=== PATIENT | female | born 1930 | race Caucasian/White ===

== ENCOUNTER 2016-06-15 09:35 | Emergency (ER) | payer MEDICARE ==
[~2016-06-15] VITALS: Ht 162.6 cm; Wt 78.5 kg
[~2016-06-15 09:35] MED LIST: AMITRIPTYLINE H10 MG PO; AMITRIPTYLINE10 MG PO; ANTI-DIARRHEAL2 MG PO; AZILECT1 MG PO; BENICAR20 MG PO; CALCIUM ACETAT667 MG PO; CALCIUM PO; CARBIDOPA/LE1 TABLE2 PO; CEFDINIR250 MG/5 M PO; CLOPIDOGREL75 M2 PO; FUROSEMIDE 40MG40 M1 PO; FUROSEMIDE40 MG PO; GLYCOLAX17 GM/DOSE PO; K-DUR 2020 MEQ PO; LOSARTAN POTASS50 MG PO; PLAVIX75 MG PO; PRAVASTATIN 20M20 MG PO; WOMEN'S DAILY1 TAB PO
[2016-06-15] MEDS ORDERED: CLINDAMYCIN HC300 MG PO (10:23)
--- NOTE | 2016-06-15 10:24 | Emergency Room Report ---
History of Present Illness Time Seen by [id number] Presenting Problem in Triage Pt arrived:Wheelchair Presenting Problem:CL WAS BROUGHT IN DUE TO A RASH ON HER RIGHT UPPER ARM. 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 N Clinical Suspician of Infection? N Mental Status: 1 - Regular (Normal Baseline) Sepsis Risk:Low Sepsis Risk Have you (or family members/close friends) recently traveled outside the [place]? N If Yes, where/when: Have you had exposure to infectious disease within the past month? N TB? Other? Specify: Patient was sent in for evaluation of LEFT upper extremity redness which was outlined in pen there is an area that is about 0.5 percent body surface area on her LEFT lateral arm that has been marked by pen in a somewhat circular area where they had marked boundaries of where the redness was the nurse reports to me that she cannot see any redness within the marked area, the patient's family state they can't currently see any redness within the marked area either. The patient denies any pain denies any problems she denies any fevers or chills. she denies any itching at the site ALLERGIES Coded Allergies: amoxicillin (Intermediate, I-RASH 03/30/15) clavulanic acid (From AUGMENTIN) (Mild, NA-DIARRHEA 03/30/15) Home Medications Reported Medications Clopidogrel Bisulfate (Plavix) 75 MG PO DAILY Furosemide (Furosemide 40MG) 40 MG PO DAILY MULTIVITS,CA,MINERALS/IRON/FA (Women's Daily Caplet) 1 TAB PO DAILY CARBIDOPA 25/LEVODOPA 100 (Carbidopa-Levodopa 25-100 Tab) 1 TABLET PO TID [CALCIUM] 1 TAB PO DAILY History Medical History General CAD? No Angina: No MT: No Hypertension? Yes Hyperlipidemia? Yes CHF? No DVT? No PE? No COPD? No Asthma? No Anemia? No GERD? No Gastric ulcers? No GI Bleed? No Hernia? No Thyroid Problems? No Hypothyroidism? No CVA? No Seizures? No Diabetes? No Insulin Dependent: No Insulin Pump: No Home FSBS? No Renal Insuffiency? No End Stage Renal Disease? No UTI? No Stones? No BPH? No GB Disease: No Nephritic Syndrome? No Asplenia? No Hepatitis? No Sickle Cell Disease? No Arthritis? Yes Migraines? No Cataracts? No Glaucoma? No MRSA? No HIV? No TB? No Anxiety? No Depression? No Cancer? No More? Yes Additional hx: PARKINSON'S Immunization Hx DT/Tetanus Unknown Surgical Hx Previous Surgery?Y CANDIDA KNEE REPLACEMENT HYSTERECTOMY CATARACTS Family History Family Hx Diabetes Yes Hypertension Yes Cancer Yes Social History Smoking Hx Smoker: Never Smoker Tobacco: No Alcohol Alcohol: No Review of Systems All Other Systems Reviewed and Negative Physical Exam Vital Signs Vital Signs Date Time Temp Pulse Resp B/P Pulse O2 O2 Flow FiO2 Ox Delivery Rate 06/15 0945 97.0 79 16 105/51 99 General Appearance: Nontoxic Head: Normocephalic, without obvious abnormality, atraumatic. Eyes: conjunctiva/corneas clear ENT: Mucous membranes moist. Neck: No jugular venous distention. Cardiac: regular rate and rhythm Lungs: Clear to auscultation bilaterally Extremities: no edema Musculoskeletal: No chest wall tenderness Skin: No rashes or lesions to exposed skin. Patient's LEFT arm has an area that is described in pen its about 0.5 body surface area, with irregular borders like they would be marketing a cellulitic area. Currently I cannot release say that I seem much in the way of redness if it was an outlined in pen I would not really noted to be remarkable, her family states they don't see any definitive redness and nurse states she doesn't see any redness. There is perhaps some minimal warmth there, and there is some minimal redness but not really abnormal per se and looks similar to the other side. Neurologic: Alert. No gross focal deficits Psychiatric: Normal affect (Eugene CH, Anders) General Appearance normal appearance Respiratory Status No: respiratory distress. Cardiovascular no JVD Neurologic alert Medical Decision Making LABS/Meds/Orders Pt receiving controlled substance in ED? No Comment Patient denies any itching would be abnormal to have an ALLERGIC reaction circumscribed by staff such as it is, it is some minimal warmth there I'll go ahead and start her on antibiotics and told to be on the lookout for any itching or anything that she may be reacting to an ALLERGIC type sense that there is no sign of any hives, and clinically if there was some redness there it seems more likely to be a low-grade cellulitis Results/Orders Current Medication Orders Sig/Hortensia Start time Last Medication Dose Route Stop Time Status Admin Clindamycin HCl 300 MG ONCE ONE 06/15 1030 AC PO 06/15 1031 Departure Departure Time of Disposition 1021 Disposition DC Home or Self Care(routine) Clinical Impression Primary Impression: Rash and nonspecific skin eruption Condition STABLE Referrals Brenden CH,Luisito Villanueva (Family) Patient Instructions DI for Cellulitis -- Adult, DI for Rash Discharge Counseling Counseled pt/family regarding diagnosis, medications/RX, home care, follow up needs Prescriptions Current Visit Scripts Clindamycin Hcl (Clindamycin 300MG) 300 MG PO QID #30 CAP ED Critical Care Critical Care No at 1022
[2016-06-15 10:33] VITALS: BP 105/51
== END 2016-06-15 10:33 | disposition home or self-care (01) ==
LOC: ER 09:35
DX: R21 Rash and other nonspecific skin eruption (principal); I10 Essential (primary) hypertension; G20 Parkinson's disease

== ENCOUNTER 2016-08-08 13:08 | Observation (INO) | payer MEDICARE ==
[~2016-08-08] VITALS: Ht 160 cm; Wt 76.2 kg
[~2016-08-08 13:08] MED LIST changes: +ACETAMINOPHEN325 M2 PO; +APAP W/ CODEINE1 TAB PO; +ARTHRITIS PAI42.5 GM TP; +ATIVAN GENERIC0.5 MG PO; +BISACODYL LAXATI5 MG PO; +CALCIUM500 M1 PO; +CENTRUM WOMEN1 EACH PO; +CLINDAMYCIN HC300 MG PO; +DELTASONE20 MG PO; +DONEPEZIL 10MG10 MG PO; +IMODIUM A-D2 M3 PO; +LORATADINE 10MG10 M1 PO; +MELATIN1 TAB PO; +NEIGHBOR PO; +POLYETHYLE17 GM/Dose PO; +PRAVACHOL20 MG PO; +RASAGILINE MESYL1 MG PO; +REQUIP0.5 MG PO; +XARELTO15 MG PO
[2016-08-08 13:10] VITALS: BP 119/62
--- OUTSIDE RECORDS SUMMARY | 2016-08-08 13:20 | External Medical Summary Rpt ---
Author Author , Organization [employer] Address Unknown Phone Unavailable Purpose Continuity of Care Document - through 2016 Problems Code Diagnosis DOS Provider Status E86.0 DEHYDRATION [id number] N20.1 CALCULUS OF URETER N39.0 URINARY TRACT INFECTION, SITE NOT SPECIFIED N83.201 UNSPECIFIED OVARIAN CYST, RIGHT SIDE R21 RASH AND OTHER NONSPECIFIC SKIN ERUPTION S00.93XA CONTUSION OF UNSPECIFIED PART OF HEAD, INITIAL ENCOUNTER S49.90XA UNSP INJURY OF SHOULDER AND UPPER ARM, UNSP ARM, INIT ENCNTR T14.8 OTHER INJURY OF UNSPECIFIED BODY REGION V58.69 W19.XXXA UNSPECIFIED FALL, INITIAL ENCOUNTER
--- OUTSIDE RECORDS SUMMARY | 2016-08-08 13:20 | External Medical Summary Rpt ---
Author Author DA [place], [employer] Organization [employer] Address Unknown Phone Unavailable
--- OUTSIDE RECORDS SUMMARY | 2016-08-08 13:20 | External Medical Summary Rpt ---
Author Author , Organization [employer] Address Unknown Phone Unavailable Purpose Continuity of Care Document - 12-19-1999 through 2016 Immunization Name Date Route CVX Reacti Commen Provid Is Given on t er Refuse d Hep B, Histor H149 No adult 2000 ical Inform ation - Source Unspec ified Hep B, Histor H149 No adult 1999 ical Inform ation - Source Unspec ified Hep B, Histor H149 No adult 1999 ical Inform ation - Source Unspec ified
--- OUTSIDE RECORDS SUMMARY | 2016-08-08 13:20 | External Medical Summary Rpt ---
Author Author , Organization [employer] Address Unknown Phone Unavailable Purpose Continuity of Care Document - through 2016 Problems Code Diagnosis DOS Provider Status E86.0 DEHYDRATION [id number] N20.1 CALCULUS OF URETER N39.0 URINARY TRACT [...]
--- NOTE | 2016-08-08 13:23 | Emergency Room Report ---
History of Present Illness Time Seen by [id number] Presenting Problem in Triage Pt arrived:Walked Presenting Problem:PT WAS REACHING AND FELL AND INJURED RIGHT ANKLE. 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 ONLY PAIN IS RIGHT FOOT. 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 N Clinical Suspician of Infection? N Mental Status: 1 - Regular (Normal Baseline) Sepsis Risk:Low Sepsis Risk Have you (or family members/close friends) recently traveled outside the [place]? N If Yes, where/when: Have you had exposure to infectious disease within the past month? TB? Other? Specify: Patient was in the lift chair today and fell out injuring her RIGHT ankle that is her only complaint per the long term. The patient to me complains of RIGHT ankle pain only she denies hitting her head loss of consciousness she denies any headache chest pain abdominal pain neck pain or back pain she does complain of RIGHT ankle pain moderate in severity achy no radiation. Denies any hip pain. Patient appears weak and fatigued the family states she appears baseline to them. Denies loss of consciousness denies lightheadedness or prodromal symptoms, report is that she fell because she was reaching for something. Patient is a somewhat poor historian ALLERGIES Coded Allergies: amoxicillin (Intermediate, I-RASH 08/08/16) clavulanic acid (From AUGMENTIN) (Mild, NA-DIARRHEA 08/08/16) Home Medications Active Scripts Rivaroxaban (Xarelto) 15 MG PO BID #30 TAB Prov: 07/03/16 Reported Medications Lorazepam (Ativan) 0.25 MG PO BIDP PRN ANXIETY Acetaminophen (Acetaminophen ER) 650 MG PO Q6HP PRN PAIN Calcium Carbonate (Calcium) 1,000 MG PO DAILY Capsaicin (Arthritis Pain Relief) 42.5 GM TP DAILYP PRN PAIN Loperamide HCl (Imodium A-D) 2 MG PO Q6HP PRN DIARRHEA Loratadine (Loratadine 10MG Tablet) 10 MG PO DAILYP PRN ALLERGIES Polyethylene Glycol 3350 (Polyethylene Glycol (3350)) 17 GM PO DAILYP PRN CONSTIPATION Calcium Carbonate (Antacid) 500 MG PO Q2HP PRN ANTACID APAP 300MG W/CODEINE 30MG (Acetaminophen-Cod #3 Tablet) 1 TAB PO Q6HP PRN PAIN Clopidogrel Bisulfate (Plavix) 75 MG PO DAILY Furosemide (Furosemide 40MG) 40 MG PO DAILY MULTIVITS,CA,MINERALS/IRON/FA (Women's Daily Caplet) 1 TAB PO DAILY CARBIDOPA 25/LEVODOPA 100 (Carbidopa-Levodopa 25-100 Tab) 1.5 TABLET PO QID Potassium Chloride (K-Dur) 20 MEQ PO DAILY #30 Prednisone (Prednisone 10MG) 10 MG PO TID #42 Rasagiline Mesylate 1 MG PO DAILY #30 Pravastatin Sodium (Pravachol) 20 MG PO QHS #30 DONEPEZIL HCL (Donepezil 10MG Tablet) 20 MG PO QHS Bisacodyl 5 MG PO BIDP PRN CONSTIPATION MELATONIN (Melatin) 1 TAB PO QHS ROPINIROLE HCL (Ropinirole 0.25MG) 0.5 MG PO TID History Medical History General CAD? No Angina: No VA: No Hypertension? Yes Hyperlipidemia? Yes CHF? No DVT? No PE? No COPD? No Asthma? No Anemia? No GERD? No Gastric ulcers? No GI Bleed? No Hernia? No Thyroid Problems? No Hypothyroidism? No CVA? No Seizures? No Diabetes? No Insulin Dependent: No Insulin Pump: No Home FSBS? No Renal Insuffiency? No End Stage Renal Disease? No UTI? No Stones? No BPH? No GB Disease: No Nephritic Syndrome? No Asplenia? No Hepatitis? No Sickle Cell Disease? No Arthritis? Yes Migraines? No Cataracts? No Glaucoma? No MRSA? No HIV? No TB? No Anxiety? No Depression? No Cancer? No More? Yes Additional hx: PARKINSON'S Immunization Hx Ped.Immunizations UTD Yes DT/Tetanus Unknown Pneumonia Received In Past Surgical Hx Previous Surgery?Y CANDIDA KNEE REPLACEMENT HYSTERECTOMY CATARACTS Family History Family Hx Diabetes Yes Hypertension Yes Cancer Yes Social History Smoking Hx Smoker: Never Smoker Tobacco: No Type N/A Are you/the child exposed to second-hand smoke: No Alcohol Alcohol: No Review of Systems All Other Systems Reviewed and Negative Physical Exam Vital Signs Vital Signs Date Time Temp Pulse Resp B/P Pulse O2 O2 Flow FiO2 Ox Delivery Rate 08/08 1643 78 18 148/76 94 2 06/ 1540 72 18 128/68 94 06/07 1512 18 06/07 1506 73 18 116/52 94 06/07 1423 74 18 108/45 97 /07 1310 98.3 88 18 119/62 93 General Appearance: Nontoxic appears pale and fatigued, RIGHT ankle appears swollen has ice on it Head: Normocephalic, without obvious abnormality, atraumatic. Eyes: conjunctiva/corneas clear ENT: Mucous membranes moist. Neck: No jugular venous distention. Cardiac: regular rate and rhythm Lungs: Clear to auscultation bilaterally Abdomen: Nontender, Nondistended, positive bowel sounds, no rebound : No CVA tenderness Extremities: +2 ble edema Musculoskeletal: C-spine nontender Thoracic spine nontender Lumbar spine nontender Chest wall nontender Arms nontender Legs nontender except for RIGHT ankle tenderness and swelling Pelvis stable AP lateral compression Skin: No rashes or lesions to exposed skin. Neurologic: Alert. No gross focal deficits Psychiatric: Normal affect (Eugene CH, Anders) General Appearance fatigued Respiratory Status No: respiratory distress. Cardiovascular normal exam Neurologic alert Medical Decision Making LABS/Meds/Orders Pt receiving controlled substance in ED? No Comment 344 days and denies any bright red blood she states she did have one dark stool rectal was done/ since prior hemoglobin was 11.x 443 pt with some new anemia and a bimalleolar fracture nondisplaced callout to family doctor. Dr. Galicia desired admission to the hospital observation MedSur for anemia observation overnight follow up with orthopedics Results/Orders Laboratory Tests 08/08/16 1545: Stool Occult Blood TRACE 08/08/16 1332: Sodium 140, Potassium 4.0, Chloride 104, Carbon Dioxide 28, BUN 19 H, Creatinine 1.2 H, Estimated Creat Clear 39 L, Estimated GFR (MDRD) 42 L, Glucose 135 H, Calcium 9.2, Total Bilirubin 0.3, AST 9 L, ALT 8 L, Alkaline Phosphatase 59, Creatine Kinase 23 L, CK-MB (CK-2) Rel Index 2.2, CK and CKMB Interp < 0.5, Troponin I 0.02, Total Protein 6.0 L, Albumin 2.7 L, Globulin 3.3 H, Albumin/Globulin Ratio 0.8 L, WBC 10.6, RBC 3.06 L, Hgb 8.6 L, Hct 27.8 L, MCV 91.1, RDW 18.0 H, Plt Count 399, MPV 7.1 L, Gran % 89.8 H, Gran # 9.5 H, Total Counted 100, Lymphocytes % 7.0 L, Monocytes % 2.8, Eosinophils % 0.2, Basophils % 0.1, Neutrophils 88 H, Lymphocytes (Manual) 10, Lymphocytes # 0.7, Monocytes (Manual) 1 L, Monocytes # 0.3, Eosinophils # 0.0, Eosinophils # (Manual) 1, Basophils # 0.0, Platelet Estimate NORMAL, PUBS MCHC 31.0 L, MCH 28.2 Current Medication Orders Sig/Hortensia Start time Last Medication Dose Route Stop Time Status Admin Morphine Sulfate 4 MG ONCE ONE 08/08 1515 DC 08/08 IV 08/08 1516 1512 Ondansetron HCl 4 MG ONCE ONE 08/08 1515 DC 08/08 IV 08/08 1516 1512 Ondansetron HCl 0 .STK-MED ONE 08/08 1509 DC .ROUTE Morphine Sulfate 0 .STK-MED ONE 08/08 1508 DC .ROUTE Sodium Chloride 10 ML PRN PRN 08/08 1315 AC IV 08/09 1315 Orders Procedure Date/time Status Decision to admit 08/08 1646 Active STABILIZE JOINT 08/08 1604 Active STOOL OCCULT BLOOD 08/08 1544 Complete DIFFERENTIAL-WBC 08/08 1332 Complete URINALYSIS/COMPLETE 08/08 1323 Active ELECTROCARDIOGRAM REQUEST 08/08 1315 Active IV SALINE LOCK 08/08 1315 Active CBC WITH AUTO DIFF 08/08 1315 Complete CARDIAC ENZYMES 08/08 1315 Complete CHEM 12 PROFILE 08/08 1315 Complete 12 LEAD EKG-JALYN (INITIAL) 08/08 UNK Active 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 Rhythm Normal Sinus Rhythm Rate 82 Ectopy Yes (pac) Comments Normal axis nonspecific electrocardiogram, pac Departure Departure Time of Disposition 1648 Disposition Still a Patient Clinical Impression Primary Impression: Anemia Qualifiers: Anemia type: unspecified type Qualified Code: D64.9 - Anemia, unspecified Secondary Impressions: Ankle fracture, right Qualifiers: Encounter type: initial encounter Fracture type: closed Qualified Code: S82.891A - Other fracture of right lower leg, initial encounter for closed fracture Condition STABLE Referrals NO REFERRAL (PCP) ED Critical Care Critical Care No at [id number]
[2016-08-08 13:43] LABS: LYMPH # 0.7 K/mm3 (0.7-4.5)
[2016-08-08 13:46] LABS: HEMOGLOBIN 8.6 g/dL (12.2-16.2)
[2016-08-08 14:06] LABS: NEUTROPHILS 88 % (42-76)
[2016-08-08 14:08] LABS: BUN 19 mg/dL (7-18)
[2016-08-08 14:09] LABS: GFR (ESTIMATED) 42 ML/MIN (59-)
--- NOTE | 2016-08-08 14:41 | RADIOLOGY REPORT PS360 ---
LOWER LEG-RT HISTORY: No traumatic pain INJURY ORDERING PHYSICIAN: Anders Knight MD PATIENT AGE: 86 years COMPARISON: None FINDINGS: Total knee prosthesis is present in good position. There is a nondisplaced oblique fracture involving the base of the medial malleolus. There is moderate soft tissue swelling overlying the lateral malleolus. The foot film suggest a nondisplaced fracture of the lateral malleolus. Ankle films recommended for further evaluation. IMPRESSION: Nondisplaced oblique fracture at the base of the medial malleolus with possible nondisplaced lateral malleolus fracture. Suggest ankle films for further evaluation.
--- NOTE | 2016-08-08 14:42 | RADIOLOGY REPORT PS360 ---
FOOT-RT-3 VIEWS HISTORY: Post traumatic pain INJURY ORDERING PHYSICIAN: Anders Knight MD PATIENT AGE: 86 years COMPARISON: None FINDINGS: No acute foot fracture apparent. There does appear to be nondisplaced oblique fracture of the base of the medial malleolus and a nondisplaced fracture at the lateral malleolus region. May be confirmed with ankle films.. The joint spaces are well-preserved. No significant degenerative/arthritic changes. No erosive changes evident. IMPRESSION: Nondisplaced fractures at the base of the medial malleolus and the lateral malleolus region . Suggest ankle film to confirm
--- NOTE | 2016-08-08 14:43 | RADIOLOGY REPORT PS360 ---
CHEST-AP VIEW ONLY HISTORY: Chest pain following injury, fall with injury and pain fall ORDERING PHYSICIAN: Anders Knight MD PATIENT AGE: 86 years COMPARISON: 06/30/2016 FINDINGS: The cardiomediastinal silhouette and pulmonary vascularity are within normal limits. There are minimal atelectatic changes in the lung bases.. No acute bony abnormalities. IMPRESSION: Mild bibasilar atelectatic change otherwise negative
[2016-08-08 15:52] LABS: STOOL OCCULT BLOOD TRACE (NEG)
--- NOTE | 2016-08-08 16:38 | RADIOLOGY REPORT PS360 ---
ANKLE-RT-3 VIEWS HISTORY: Pain and swelling FALL ORDERING PHYSICIAN: Anders Knight MD PATIENT AGE: 86 years COMPARISON: None FINDINGS: There is a nondisplaced oblique fracture involving the base of the medial malleolus with overlying soft tissue swelling. A nondisplaced transverse fracture involves the distal fibula at the level the ankle joint. An avulsion fracture is also noted at the tip of the fibula. There is soft tissue swelling laterally. The posterior distal tibia does appear intact. The ankle mortise does not appear widened IMPRESSION: Bimalleolar fracture nondisplaced, with soft tissue swelling as described above
--- OUTSIDE RECORDS SUMMARY | 2016-08-08 17:20 | External Medical Summary Rpt ---
Author Author , Organization [employer] Address Unknown Phone Unavailable Purpose Continuity of Care Document - through 2016 Problems Code Diagnosis DOS Provider Status E86.0 DEHYDRATION [id number] N20.1 CALCULUS OF URETER N39.0 URINARY TRACT [...]
--- OUTSIDE RECORDS SUMMARY | 2016-08-08 17:20 | External Medical Summary Rpt ---
Author Author KERRYCHAVEZ [place], [employer] Organization [employer] Address Unknown Phone Unavailable Results Hemoglobin.gastrointestinal [Presence] in Stool Observa Value Referen Units Interpr Notes Date tion ce etation Range Hemoglo TRACE NEG No No No Aug 08 bin.gas informa informa informa 2017 trointe tion in tion in tion in 3:45 PM stinal source source source [Presen data data data ce] in Stool --1st specime n CBC W Auto Differential panel in Blood Observa Value Referen Units Interpr Notes Date tion ce etation Range Basophils 0 - 0.2 K/MM3 Normal No Aug 08 informati 2016 1:32 [#/volume on in PM ] in source Blood by data Automated count Basophils 0.1 - 2.0 % Normal No Aug 7 /100 informati 2017 1:32 leukocyte on in PM s in source Blood by data Automated count Eosinophi 0.0 - 0.4 K/mm3 Normal No Aug 08 ls informati 2016 1:32 [#/volume on in PM ] in source Blood by data Automated count Eosinophi 0.1 - % Normal No Aug 08 ls/100 12.0 informati 2016 1:32 leukocyte on in PM s in source Blood by data Automated count Granulocy 1.8 - 7.8 K/mm3 High No Aug 08 judd informati 2016 1:32 [#/volume on in PM ] in source Blood by data Automated count Granulocy 37.0 - % High No Aug 08 judd/100 80.0 informati 2016 1:32 leukocyte on in PM s in source Blood by data Automated count Hematocri 37.0 - % Low No Aug 08 t [Volume 47.0 informati 2016 1:32 on in PM Fraction] source of Blood data Hemoglobi 12.2 - g/dL Low No Aug 08 n 16.2 informati 2016 1:32 [Mass/vol on in PM ume] in source Blood data Lymphocyt 0.7 - 4.5 K/mm3 Normal No Iain 7 es informati 2017 1:32 [#/volume on in PM ] in source Unspecifi data ed specimen by Automated count Lymphocyt 10 - 50.0 % Low No Aug 7 es inform2016 1:32 [#/volume on in PM ] in source Unspecifi data ed specimen by Automated count Erythrocy 27 - 31.2 pg Normal No Aug 7 te mean inform2016 1:32 corpuscul on in PM ar source hemoglobi data n [Entitic mass] Erythrocy 31.8 - g/dl Low No Aug 08 te mean 35.4 informati 2017 1:32 corpuscul on in PM ar source hemoglobi data n concentra tion [Mass/vol ume] by Automated count Erythrocy 82.2 - fl Normal No Aug 08 te mean 97.8 informati 2016 1:32 corpuscul on in PM ar volume source [Entitic data volume] by Automated count Monocytes 0.1 - 1.0 K/mm3 Normal No Aug 7 informati 2016 1:32 [#/volume on in PM ] in source Blood by data Automated count Monocytes 1.7 - 9.3 % Normal No Aug 7 /100 informati 2017 1:32 leukocyte on in PM s in source Blood by data Automated count Platelet 7.4 - fl Low No Aug 08 mean 10.4 informati 2017 1:32 volume on in PM [Entitic source volume] data in Blood by Automated count Platelets 142 - 424 K/mm3 No No Aug 7 informati informati 2017 1:32 [#/volume on in on in PM ] in source source Blood data data Erythrocy 4.2 - 5.4 M/mm3 Low No Aug 7 judd informati 2017 1:32 [#/volume on in PM ] in source Amniotic data fluid Erythrocy 11.5 - % High No Aug 08 te 17.5 informati 2017 1:32 distribut on in PM ion width source [Entitic data volume] by Automated count Leukocyte 4.8 - K/MM3 Normal No Aug 7 s 10.8 informati 2016 1:32 [#/volume on in PM ] in source Blood data Differential panel, method unspecified - Observa Value Referen Units Interpr Notes Date tion ce etation Range Eosinophi 0 - 3 % Normal No Aug 7 ls/100 informati 2016 1:32 leukocyte on in PM s in source Blood by data Manual count LYMPH 10 10 - 50 % Normal No Aug 7 informa 2017 tion in 1:32 PM source data Monocytes 2 - 9 % Low No Iain 7 /100 informati 2017 1:32 leukocyte on in PM s in source Blood by data Automated count Platele NORMAL No No No No Aug 7 ts informa informa informa informa 2017 [Presen tion in tion in tion in tion in 1:32 PM ce] in source source source source Blood data data data data by Light microsc opy Neutrophi 42 - 76 % High No Aug 7 ls informati 2017 1:32 [#/volume on in PM ] in source Blood by data Automated count Cells No #CELLS No No Aug 7 Counted informati informati informati 2017 1:32 Total [#] on in on in on in PM in Blood source source source data data data
--- OUTSIDE RECORDS SUMMARY | 2016-08-08 17:20 | External Medical Summary Rpt ---
Author Author , Organization [employer] Address Unknown Phone Unavailable Purpose Continuity of Care Document - through 2016 Problems Code Diagnosis DOS Provider Status E86.0 DEHYDRATION [id number] N20.1 CALCULUS OF URETER N39.0 URINARY TRACT [...]
[2016-08-08 17:45] VITALS: BP 140/63
--- NOTE | 2016-08-08 18:01 | HISTORY AND PHYSICAL REPORT ---
Demographics: Admit date: 08/08/16 Chief complaint: Fall with RIGHT ankle pain PRIMARY DIAGNOSIS: acute anemia Allergies: Coded Allergies: amoxicillin (Intermediate, I-RASH 08/08/16) clavulanic acid (From AUGMENTIN) (Mild, NA-DIARRHEA 08/08/16) History of present illness: History of present illness: 86-year-old white female, current resident of long-term care facility who apparently fell out of a chair at that facility and had significant ankle pain. Was brought to the emergency department. Has a nondisplaced malleolar fracture which was splinted, but workup revealed significant anemia relative to her prior hemoglobin at this facility. She was admitted overnight for observation, pain control evaluation and follow- up hemoglobin testing. She herself is unable to give much of a history because of confusion and dementia. Past medical history: Family HX Diabetes Yes Hypertension Yes Cancer Yes Immunization HX Ped.Immunizations UTD Yes DT/Tetanus Unknown Pneumonia Received In Past General CAD? No Angina: No AL: No Hypertension? Yes Hyperlipidemia? Yes CHF? No DVT? No PE? Yes (diagnosed June 2016) COPD? No Asthma? No Anemia? No GERD? No Gastric ulcers? No GI Bleed? No Hernia? No Thyroid Problems? No Hypothyroidism? No CVA? No Seizures? No Diabetes? No Insulin Dependent: No Insulin Pump: No Home FSBS? No Renal Insuffiency? No UTI? No Stones? No BPH? No GB Disease: No Nephritic Syndrome? No Asplenia? No Hepatitis? No Sickle Cell Disease? No Arthritis? Yes Migraines? No Cataracts? No Glaucoma? No MRSA? No HIV? No TB? No Anxiety? No Depression? No Cancer? No More? Yes Additional hx: PARKINSON'S Past Surgical HX Previous Surgery?Y CANDIDA KNEE REPLACEMENT HYSTERECTOMY CATARACTS Current home meds: Active Scripts Rivaroxaban (Xarelto) 15 MG PO BID #30 TAB Prov: 07/03/16 Reported Medications Lorazepam (Ativan) 0.25 MG PO BIDP PRN ANXIETY Acetaminophen (Acetaminophen ER) 650 MG PO Q6HP PRN PAIN Calcium Carbonate (Calcium) 1,000 MG PO DAILY Capsaicin (Arthritis Pain Relief) 42.5 GM TP DAILYP PRN PAIN Loperamide HCl (Imodium A-D) 2 MG PO Q6HP PRN DIARRHEA Loratadine (Loratadine 10MG Tablet) 10 MG PO DAILYP PRN ALLERGIES Polyethylene Glycol 3350 (Polyethylene Glycol (3350)) 17 GM PO DAILYP PRN CONSTIPATION Calcium Carbonate (Antacid) 500 MG PO Q2HP PRN ANTACID APAP 300MG W/CODEINE 30MG (Acetaminophen-Cod #3 Tablet) 1 TAB PO Q6HP PRN PAIN Clopidogrel Bisulfate (Plavix) 75 MG PO DAILY Furosemide (Furosemide 40MG) 40 MG PO DAILY MULTIVITS,CA,MINERALS/IRON/FA (Women's Daily Caplet) 1 TAB PO DAILY CARBIDOPA 25/LEVODOPA 100 (Carbidopa-Levodopa 25-100 Tab) 1.5 TABLET PO QID Potassium Chloride (K-Dur) 20 MEQ PO DAILY #30 Prednisone (Prednisone 10MG) 10 MG PO TID #42 Rasagiline Mesylate 1 MG PO DAILY #30 Pravastatin Sodium (Pravachol) 20 MG PO QHS #30 DONEPEZIL HCL (Donepezil 10MG Tablet) 20 MG PO QHS Bisacodyl 5 MG PO BIDP PRN CONSTIPATION MELATONIN (Melatin) 1 TAB PO QHS ROPINIROLE HCL (Ropinirole 0.25MG) 0.5 MG PO TID Social Hx: Smoking HX Tobacco No Type N/A Are you/the child exposed to second-hand smoke: No Alcohol Alcohol: No Hx of Drug Use Drug Use? No Patien't marital status is Patient's support system is good Comment: Long-term custodial resident. Review of systems: Constitutional malaise, weakness. Respiratory No: no symptoms reported. Cardiovascular No no symptoms reported Gastrointestinal/Abdominal No no symptoms reported Genitourinary No: no symptoms reported. Musculoskeletal see HPI. Neurological No: see HPI. Comment: Review of systems unreliable given her dementia Exam: Lab data for last 24 hours: Laboratory Tests 08/08/16 1545: Stool Occult Blood TRACE 08/08/16 1332: Sodium 140, Potassium 4.0, Chloride 104, Carbon Dioxide 28, BUN 19 H, Creatinine 1.2 H, Estimated Creat Clear 39 L, Estimated GFR (MDRD) 42 L, Glucose 135 H, Calcium 9.2, Total Bilirubin 0.3, AST 9 L, ALT 8 L, Alkaline Phosphatase 59, Creatine Kinase 23 L, CK-MB (CK-2) Rel Index 2.2, CK and CKMB Interp < 0.5, Troponin I 0.02, Total Protein 6.0 L, Albumin 2.7 L, Globulin 3.3 H, Albumin/Globulin Ratio 0.8 L, WBC 10.6, RBC 3.06 L, Hgb 8.6 L, Hct 27.8 L, MCV 91.1, RDW 18.0 H, Plt Count 399, MPV 7.1 L, Gran % 89.8 H, Gran # 9.5 H, Total Counted 100, Lymphocytes % 7.0 L, Monocytes % 2.8, Eosinophils % 0.2, Basophils % 0.1, Neutrophils 88 H, Lymphocytes (Manual) 10, Lymphocytes # 0.7, Monocytes (Manual) 1 L, Monocytes # 0.3, Eosinophils # 0.0, Eosinophils # (Manual) 1, Basophils # 0.0, Platelet Estimate NORMAL, PUBS MCHC 31.0 L, MCH 28.2 Admission vital signs: 1ST Vital Signs Result Date Time Pulse Ox 93 08/08 1310 B/P 119/62 08/08 1310 Temp 98.3 08/08 1310 Pulse 88 08/08 1310 Resp 18 08/08 1310 O2 Flow Rate 2 08/08 1643 Additional information: Patient is pleasant, talkative but unable to give a good/reliable history. In no respiratory distress, air movement is good in both anterior lung hanson, heart rate regular. Abdomen soft, nontender, RIGHT leg in a splint, distal toes are warm and well-perfused. LEFT leg has knee replacement scar on the anterior aspect of the leg, good distal pulses, mild edema in both feet noted but good capillary refill. Plan: Problem List 1. Ankle fracture, right 2. Anemia Plan: Very tenuous patient with ankle fracture. Orthopedic consultation tomorrow. Probably needs rigid cast placement before return back to custodial for stability. Anemia is concerning given blood thinner dosage since her pulmonary embolism. Risk-benefit ratio now problematically tips toward risk, we will hold anticoagulation at this point and follow blood counts tomorrow. Will guaiac stools. at 1801
[2016-08-08 18:20] VITALS: BP 153/73
[2016-08-08 20:17] VITALS: BP 141/60
[2016-08-08 22:00] VITALS: BP 141/60
[2016-08-09 04:30] VITALS: BP 128/59
[2016-08-09 06:24] LABS: HEMOGLOBIN 8.7 g/dL (12.2-16.2); LYMPH # 1.8 K/mm3 (0.7-4.5); LYMPH % 18.1 % (10-50.0)
--- NOTE | 2016-08-09 07:24 | PHARMACY CLINIC NOTE ---
Patient Demographics Patient Demographics Admission date: 08/08/16 Date: 08/09/16 Time: 0724 Allergies Coded Allergies: amoxicillin (Intermediate, I-RASH 08/08/16) clavulanic acid (From AUGMENTIN) (Mild, NA-DIARRHEA 08/08/16) HEIGHT- FT: 5 IN: 3.00 K.204 VTE General Information Labs: Laboratory Tests 08/09 08/08 0530 1332 Hematology Hgb (12.2 - 16.2 g/dL) 8.7 L 8.6 L Hct (37.0 - 47.0 %) 28.0 L 27.8 L Plt Count (142 - 424 K/mm3) 402 399 Disclaimer The following section includes nursing documentation that has been pulled in for pharmacy review. Patient's VTE score: 1 Patient's VTE Risk: VERY LOW RISK Clinical trial participant? No VTE prophylaxis [id number] [id number] VTE prophylaxis ordered? Yes Type of prophylaxis/treatment: PHILLY at 0724
[2016-08-09 07:41] VITALS: BP 128/59
--- NOTE | 2016-08-09 07:52 | ACUTE CARE PROGRESS NOTE (QUA) ---
Progress Notes Subjective Date 08/09/16 Time 0748 Note Patient is resting in bed, attempting to feed herself with her hands. She denies pain or discomfort. Alert and oriented x2. Rate and rhythm regular, murmur noted. LS clear and equal. Abdomen soft,non-tender. Right ankle in split, distal color is warm, pink. Able to wiggle toes, 1+ BLE edema. Bruising noted left over 2nd-4th MTP joints Patient/family reports: no complaints Nursing reports: confusion Objective Findings Last VS-Temp:97.8 B/P:128/59 Pulse:83 Resp:18 SaO2:100 OXYGEN Last weight lbs:168 oz:0 K.204 Method:Bed Scales Reviewed: medications, vital signs, lab results, radiology report Assessment/Plan Problem List 1. Ankle fracture, right Qualifiers: Encounter type: initial encounter Fracture type: closed Qualified Code: S82.891A - Other fracture of right lower leg, initial encounter for closed fracture 2. Anemia Qualifiers: Anemia type: unspecified type Qualified Code: D64.9 - Anemia, unspecified Patient condition Stable Plan: Consult ortho, plan for discharge back to [place] later today This inpt stay is expected to cross 2 MNs from start of care No at 0752
[2016-08-09 08:32] VITALS: BP 114/56
[2016-08-09] MEDS ORDERED: XARELTO20 MG PO (10:44)
[2016-08-09] MEDS ORDERED: PRESERVISION A1 EACH PO (10:48)
--- NOTE | 2016-08-09 11:49 | DISCHARGE SUMMARY STANDARD ---
See Addendum Demographics Admit date: 08/08/16 Discharge date: 08/09/16 History of present illness History of present illness 86-year-old white female, current resident of long-term care facility who apparently fell out of a chair at that facility and had significant ankle pain. Was brought to the emergency department. Has a nondisplaced malleolar fracture which was splinted, but workup revealed significant anemia relative to her prior hemoglobin at this facility. She was admitted overnight for observation, pain control evaluation and follow- up hemoglobin testing. She herself is unable to give much of a history because of confusion and dementia. Hospital Course Hospital Course: Patient admitted to acute care for observation. She has had minimal pain through the night. Orthopedic consultation was obtained. Plan for outpatient FU in one week for casting. Stool showed a trace of occult blood. Her antiplatelet therapy was stopped and her hemoglobin increased slightly to 8.7 this morning. Discharge back to [facility]. FU with Dr. Mcmahan in one week for counseling. FU with Dr. Wilcox to consider GI work-up. No NSAID's, aspirin or antiplatelet therapy at this time. Tylenol for pain. See medication reconciliation for complete list. Discharge diagnoses Problem List 1. Ankle fracture, right 2. Anemia Medications Medications: Discharge meds are as noted. Follow up Follow up in office in: 7 DAYS with: ROSE CH, KYLEIGH FERGUSON at [phone]
--- NOTE | 2016-08-09 13:45 | CONSULT NOTE ---
Consultation findings: Referring physician: Dr. Ortega Date of examination: 08/09/16 Time of examination: 1230 Exam findings: History of present illness: Patient is a pleasant 86-year-old female seen along with her sister who was in the room with her. Patient has history of dementia and confusion and cannot give a proper history by herself. Patient is a resident of longterm. Her sister says she fell out of her chair injuring her RIGHT ankle yesterday. She was brought to the ER and x-rays showed a nondisplaced bimalleolar fracture of the RIGHT ankle. She was put in a short-leg splint. Her workup in the ER showed anemia and she was admitted to medical services for monitoring this. Her sister says she has very poor mobility even prior to her injury. No history of any other significant injuries. No history of any distal tingling or numbness. Her past medical history, medication and ROS are well documented by Dr. Ortega. It is reviewed but not duplicated here. Physical examination: On examination patient is alert and talkative. She is in no acute distress. She has no respiratory distress and lungs are clear to auscultation bilaterally. Heart regular rate and rhythm. Abdomen soft and nontender. On examination of her RIGHT lower extremity she is in a short-leg splint. On examination out of the splint, the skin is intact. There is ecchymosis and diffuse swelling around the RIGHT ankle. She is tender over the RIGHT ankle. The foot and ankle movements are limited with pain. Distal neurovascular status is intact. She has mild edema bilaterally. She has a surgical scar over her LEFT knee from the previous knee replacement. Imaging: X-rays of her RIGHT ankle performed yesterday in the ER reviewed along with the radiologist's report. The x-rays show a nondisplaced bimalleolar fracture of her RIGHT ankle. The ankle mortise appears stable. Laboratory Tests 08/09/16 0530: Sodium 140, Potassium 3.6, Chloride 105, Carbon Dioxide 30, BUN 18, Creatinine 1.1 H, Estimated Creat Clear 43 L, Estimated GFR (MDRD) 47 L, Glucose 85, Calcium 9.0, WBC 10.0, RBC 3.02 L, Hgb 8.7 L, Hct 28.0 L, MCV 92.6, RDW 17.7 H, Plt Count 402, MPV 6.8 L, Gran % 73.1, Gran # 7.3, Lymphocytes % 18.1, Monocytes % 7.5, Eosinophils % 1.1, Basophils % 0.2, Lymphocytes # 1.8, Monocytes # 0.8, Eosinophils # 0.1, Basophils # 0.0, PUBS MCHC 31.0 L, MCH 28.7 1ST Vital Signs Result Date Time Pulse Ox 93 08/08 1310 B/P 119/62 08/08 1310 Temp 98.3 08/08 1310 Pulse 88 08/08 1310 Resp 18 08/08 1310 O2 Flow Rate 2 08/08 1643 O2 Delivery OXYGEN 08/08 1745 Impression: 1. Closed, nondisplaced bimalleolar fracture RIGHT ankle. 2. Anemia Recommendations: I reviewed the clinical and x-ray findings with the patient and her sister. I discussed the diagnosis, natural history and management options in detail including both nonsurgical and surgical. Given the fracture pattern and her mobility status, have recommended conservative management. Continue with the short leg splint for now, elevate the foot and ankle, mobilize the toes, ice frequently, take simple pain medication and mobilize nonweightbearing on the RIGHT side. We would apply a full short-leg cast in about 5-7 days' time once the swelling has decreased. From an orthopedic point of view she can be discharged back to the longterm once medically stabilized. I'll see her back for follow-up in 5-7 days' time in my office for application of a short-leg cast. All their questions were answered and they verbalized a good understanding. Thank you for the opportunity to participate in the care of this very pleasant patient. at [phone]
[2016-08-09 14:17] VITALS: BP 114/56
== END 2016-08-09 13:15 ==
LOC: ER 13:08 → 2ND 16:57 → ER 16:57 → 2ND 17:33
PROVIDERS: Emergency Medicine
DX: S82.844A Nondisplaced bimalleolar fracture of right lower leg, initial encounter for closed fracture (principal); W07.XXXA Fall from chair, initial encounter; Y92.129 Unspecified place in nursing home as the place of occurrence of the external cause; I10 Essential (primary) hypertension; G20 Parkinson's disease; F02.80 Dementia in other diseases classified elsewhere, unspecified severity, without behavioral disturbance, psychotic disturbance, mood disturbance, and anxiety
CPT/HCPCS: G0328; G0378; J2405

== ENCOUNTER → 2016-11-30 | Outpatient (CLI) | payer MEDICARE ==
[2016-12-01 18:07] LABS: URINE BILIRUBIN - DIPSTICK NEGATIVE (NEG); URINE BLOOD NEGATIVE (NEG)
== END ==
LOC: LAB 18:50
PROVIDERS: Internal Medicine
DX: N39.0 Urinary tract infection, site not specified (principal)